=== PATIENT | male | born 1935 | race Caucasian/White ===

== ENCOUNTER 2017-12-09 13:39 | Observation (INO) | payer OTHER ==
[~2017-12-09 13:39] MED LIST: ADVA250A; ASPI81; HYDR-3533 PO; PROSTATE MED; ROSU20
[2017-12-09 13:58] VITALS: BP 156/74; PULSE 84; RESP 16; TEMP 97.4; O2SAT 98
--- NOTE | 2017-12-09 14:39 | RADRPT ---
EXAM DATE/TIME: 12/09/2017 14:23 [facility] COMPARISON: No previous studies available for comparison. INDICATIONS : Confussion RADIATION DOSE: 38.56 CTDIvol (mGy) MEDICAL HISTORY : Cardiovascular disease. asthma SURGICAL HISTORY : None. ENCOUNTER: Initial ACUITY: 1 day PAIN SCALE: 0/10 LOCATION: cranial TECHNIQUE: Multiple contiguous axial images were obtained of the head. Using automated exposure control and adj ustment of the mA and/or kV according to patient size, radiation dose was kept as low as reasonably a chievable to obtain optimal diagnostic quality images. DICOM format image data is available electro nically for review and comparison. FINDINGS: CEREBRUM: The ventricles are normal for age. No evidence of midline shift, mass lesion, hemorrhage or acute in farction. No extra-axial fluid collections are seen. Tiny old left lacunar infarct in the basal gang anjali. POSTERIOR FOSSA: The cerebellum and brainstem are intact. The 4th ventricle is midline. The cerebellopontine angle i s unremarkable. EXTRACRANIAL: The visualized portion of the orbits is intact. Chronic changes in the ethmoid sinuses bilaterally. SKULL: The calvaria is intact. No evidence of skull fracture. CONCLUSION: 1. No acute intracranial hemorrhage. 2. 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 3. Chronic sinus disease. Fortino Tapia MD on December 09, 2017 at 14:37 Board Certified Radiologist. This report was verified electronically.
--- NOTE | 2017-12-09 15:01 | RADRPT ---
EXAM DATE/TIME: 12/09/2017 14:40 [facility] COMPARISON: No previous studies available for comparison. INDICATIONS : Weakness and confusion today. MEDICAL HISTORY : Cardiovascular disease. Asthma. SURGICAL HISTORY : None. ENCOUNTER: Initial ACUITY: 1 day PAIN SCORE: 0/10 LOCATION: Bilateral chest FINDINGS: PA and lateral views of the chest demonstrates mild infiltrates in both lung bases. Mild pulmonary ve nous congestion.. The cardiomediastinal contours are unremarkable. There is evidence of previous car diothoracic surgery. Osseous structures are intact. CONCLUSION: 1. Mild bibasilar infiltrates 2. Mild pulmonary venous congestion. Fortino Tapia MD on December 09, 2017 at 14:59 Board Certified Radiologist. This report was verified electronically.
[2017-12-09 15:32] LABS: AUTOMATED NEUTROPHIL # 4.2 TH/MM3 (1.8-7.7); BASOPHIL % 0.5 % (0.0-2.0); EOSINOPHIL # 0.1 TH/MM3 (0-0.4); EOSINOPHIL % 1.7 % (0.0-4.0); HEMATOCRIT 36.3 % (39.0-51.0); HEMOGLOBIN 12.3 GM/DL (13.0-17.0); LYMPH % 17.7 % (9.0-44.0); LYMPHOCYTE # 1.1 TH/MM3 (1.0-4.8); MEAN CELL VOLUME 88.1 FL (80.0-100.0); MEAN CORPUSCULAR HEMOGLOBIN 29.8 PG (27.0-34.0); MEAN CORPUSCULAR HGB CONC 33.8 % (32.0-36.0); MEAN PLATELET VOLUME 7.7 FL (7.0-11.0); MONO % 9.6 % (0.0-8.0); MONOCYTE # 0.6 TH/MM3 (0-0.9); NEUT % 70.5 % (16.0-70.0); PLATELET COUNT 190 TH/MM3 (150-450); RED BLOOD COUNT 4.12 MIL/MM3 (4.50-5.90); RED CELL DISTRIBUTION WIDTH 15.9 % (11.6-17.2)
[2017-12-09 15:36] LABS: BACTERIA, URINE RARE /hpf; BILIRUBIN, URINE NEG (NEG); BLOOD, URINE NEG (NEG); GLUCOSE,URINE NEG (NEG); KETONE, URINE TRACE mg/dL (NEG); NITRITE,URINE NEG (NEG); PH, URINE 5.5 (5.0-8.5); URINE COLOR YELLOW (YELLW/STRAW); URINE LEUKOCYTE ESTERASE TRACE (NEG)
[2017-12-09 15:37] LABS: INTERNATIONAL NORMALIZED RATIO 1.1 RATIO; PROTHROMBIN TIME - PATIENT 11.1 SEC (9.8-11.6)
[2017-12-09 15:42] LABS: ALBUMIN 3.3 GM/DL (3.4-5.0); AST (GOT) 30 U/L (15-37); BICARBONATE 26.2 MEQ/L (21.0-32.0); BLOOD UREA NITROGEN 25 MG/DL (7-18); CALCIUM 8.4 MG/DL (8.5-10.1); CHLORIDE 112 MEQ/L (98-107); CREATININE 0.89 MG/DL (0.60-1.30); GLOMERULAR FILTRATION RATE 82 ML/MIN (>89); GLUCOSE,RANDOM 125 MG/DL (74-106); SODIUM (NA) 145 MEQ/L (136-145)
[2017-12-09 15:53] LABS: ALKALINE PHOSPHATASE 89 U/L (45-117); ALT (GPT) 23 U/L (12-78); TOTAL PROTEIN 6.9 GM/DL (6.4-8.2); TROPONIN I LESS THAN 0.02 NG/ML (0.02-0.05)
[2017-12-09 18:04] VITALS: BP 156/85; PULSE 81; RESP 16; TEMP 98; O2SAT 98
[2017-12-09] MEDS ORDERED: ASPI-183 PO (18:04)
[2017-12-09 19:08] VITALS: BP 129/91; PULSE 81; RESP 17; O2SAT 100
[2017-12-09] MEDS ORDERED: PIPERACIL-TAZO 3.375 GM PREMIX 50 ML IV ONE (19:30)
[2017-12-09] MEDS ORDERED: RESP: ALBUTEROL 2.5 MG/IPRATROPIUM 0.5 MG NEB (PRN) INH (21:30)
[2017-12-09] MEDS ORDERED: FUROSEMIDE 40 MG/4 ML VIAL IV PUSH ONE (21:30)
[2017-12-09] MEDS ORDERED: SODIUM CHLORIDE 0.9% FLUSH 10 ML FLUSH IV FLUSH PRN (21:30)
[2017-12-09] MEDS: RESP: ALBUTEROL 2.5 MG/IPRATROPIUM 0.5 MG NEB (SCH) INH (22:08)
--- NOTE | 2017-12-09 22:40 | HHI.HP ---
HPI Service [facility] Primary Care Physician Nhan Linton MD Admission Diagnosis Pneumonia, CHF Diagnoses: Travel History International Travel<30 Days: No Contact w/Intl Traveler <30 Da: No Traveled to Known Affected Are: No History of Present Illness 82-year-old male with past medical history significant for CHF, COPD and CAD presents to the emergency department for evaluation of confusion and weakness. The patient was brought to the emergency department by his neighbor for evaluation of his symptoms. According to his neighbor, the patient was confused upon waking up this morning and was wandering around his house disoriented. The patient stated to his neighbor that he didn't know where he was and that he didn't feel good. The patient is an extremely poor historian denying any medical history at this time. His neighbor reports that he takes multiple medications but he does not know what they are and he left them all at home. Patient denies any chest pain or shortness of breath. He denies nausea/ vomiting/diarrhea. Denies lateralizing signs/symptoms. States he does not feel fatigued or confused. Review of Systems Except as stated in HPI: all other systems reviewed are Neg Past Family Social History Past Medical History CHF COPD CAD A. fib? Past Surgical History CABG 4 Reported Medications Reported Meds & Active Scripts Active Reported Aspirin 325 Mg Tab 325 Mg PO DAILY Allergies: Coded Allergies: No Known Allergies (Verified Adverse Reaction, Unknown, 12/09/17) Family History Father with CAD Social History Rare alcohol. Denies tobacco and illicit drugs. Physical Exam Vital Signs Vital Signs Date Time Temp Pulse Resp B/P (MAP) Pulse Ox O2 Delivery O2 Flow Rate FiO2 12/09/17 19:08 81 17 129/91 (104) 100 Room Air 12/09/17 18:05 84 16 98 Room Air 12/09/17 18:04 98.0 81 16 156/85 (108) 98 Room Air 12/09/17 13:58 97.4 84 16 156/74 (101) 98 Physical Exam GENERAL: male sitting up in bed SKIN: No rashes, ecchymoses or lesions. Cool and dry. HEAD: Atraumatic. Normocephalic. No temporal or scalp tenderness. EYES: Pupils equal round and reactive. Extraocular motions intact. No scleral icterus. No injection or drainage. ENT: Nose without bleeding, purulent drainage or septal hematoma. Throat without erythema, tonsillar hypertrophy or exudate. Uvula midline. Airway patent. NECK: Trachea midline. No JVD or lymphadenopathy. Supple, nontender, no meningeal signs. CARDIOVASCULAR: Irregularly irregular rhythm without murmurs/rubs/gallops. RESPIRATORY: Bilateral crackles. No wheezes/rales/rhonchi GASTROINTESTINAL: Abdomen soft, non-tender, nondistended. No hepato-splenomegaly , or palpable masses. No guarding. MUSCULOSKELETAL: 2+ pitting edema bilaterally. No calf tenderness. NEUROLOGICAL: Awake and alert. Cranial nerves II through XII intact. Motor and sensory grossly within normal limits. Normal speech. A&O 3. Laboratory Laboratory Tests Test 12/09/17 15:04 12/09/17 19:30 White Blood Count 6.0 Red Blood Count 4.12 Hemoglobin 12.3 Hematocrit 36.3 Mean Corpuscular Volume 88.1 Mean Corpuscular Hemoglobin 29.8 Mean Corpuscular Hemoglobin Concent 33.8 Red Cell Distribution Width 15.9 Platelet Count 190 Mean Platelet Volume 7.7 Neutrophils (%) (Auto) 70.5 Lymphocytes (%) (Auto) 17.7 Monocytes (%) (Auto) 9.6 Eosinophils (%) (Auto) 1.7 Basophils (%) (Auto) 0.5 Neutrophils # (Auto) 4.2 Lymphocytes # (Auto) 1.1 Monocytes # (Auto) 0.6 Eosinophils # (Auto) 0.1 Basophils # (Auto) 0.0 CBC Comment DIFF FINAL Differential Comment Prothrombin Time 11.1 Prothromb Time International Ratio 1.1 Activated Partial Thromboplast Time 27.3 Urine Color YELLOW Urine Turbidity CLEAR Urine pH 5.5 Urine Specific [place] 1.027 Urine Protein TRACE Urine Glucose (UA) NEG Urine Ketones TRACE Urine Occult Blood NEG Urine Nitrite NEG Urine Bilirubin NEG Urine Urobilinogen 4.0 Urine Leukocyte Esterase TRACE Urine RBC 1 Urine WBC 3 Urine Bacteria RARE Microscopic Urinalysis Comment CATH-CULTURE IND Blood Urea Nitrogen 25 Creatinine 0.89 Random Glucose 125 Total Protein 6.9 Albumin 3.3 Calcium Level 8.4 Alkaline Phosphatase 89 Aspartate Amino Transf (AST/SGOT) 30 Alanine Aminotransferase (ALT/SGPT) 23 Total Bilirubin 1.0 Sodium Level 145 Potassium Level 4.0 Chloride Level 112 Carbon Dioxide Level 26.2 Anion Gap 7 Estimat Glomerular Filtration Rate 82 Ammonia 26 Total Creatine Kinase 142 Troponin I LESS THAN 0.02 B-Type Natriuretic Peptide 991 Thyroid Stimulating Hormone 3rd Gen 2.540 Lactic Acid Level 1.0 Date/Time Source Procedure Growth Status 12/09/17 19:38 Blood Peripheral Aerobic Blood Culture Pending Received 12/09/17 19:38 Blood Peripheral Anaerobic Blood Culture Pending Received 12/09/17 15:04 Urine Catheterized Urine Urine Culture Pending Received Result Diagram: 12/09/17 1504 12/09/17 1504 Caprini VTE Risk Assessment Caprini VTE Risk Assessment: Mod/High Risk (score >= 2) Caprini Risk Assessment Model Point Value = 1 Point Value = 2 Point Value = 3 Point Value = 5 Age 41-60 Minor surgery BMI > 25 kg/m2 Swollen legs Varicose veins or History of unexplained or recurrent spontaneous Oral contraceptives or hormone replacement Sepsis (< 1 month) Serious lung disease, including pneumonia (< 1 month) Abnormal pulmonary function Acute myocardial infarction Congestive heart failure (< 1 month) History of inflammatory bowel disease Medical patient at bed rest Age 61-74 Arthroscopic surgery Major open surgery (> 45 min) Laparoscopic surgery (> 45 min) Malignancy Confined to bed (> 72 hours) Immobilizing plaster cast Central venous access Age >= 75 History of VTE Family history of VTE Factor V Leiden Prothrombin [id number] Lupus anticoagulant Anticardiolipin antibodies Elevated serum homocysteine Heparin-induced thrombocytopenia Other congenital or acquired thrombophilia Stroke (< 1 month) Elective arthroplasty Hip, pelvis, or leg fracture Acute spinal cord injury (< 1 month) Prophylaxis Regimen Total Risk Factor Score Risk Level Prophylaxis Regimen 0-1 Low Early ambulation 2 Moderate Order ONE of the following: *Sequential Compression Device (SCD) *Heparin 5000 units SQ BID 3-4 Higher Order ONE of the following medications: *Heparin 5000 units SQ TID *Enoxaparin/Lovenox 40 mg SQ daily (WT < 150 kg, CrCl > 30 mL/min) *Enoxaparin/Lovenox 30 mg SQ daily (WT < 150 kg, CrCl > 10-29 mL/min) *Enoxaparin/Lovenox 30 mg SQ BID (WT < 150 kg, CrCl > 30 mL/min) AND/OR *Sequential Compression Device (SCD) 5 or more Highest Order ONE of the following medications: *Heparin 5000 units SQ TID (Preferred with Epidurals) *Enoxaparin/Lovenox 40 mg SQ daily (WT < 150 kg, CrCl > 30 mL/min) *Enoxaparin/Lovenox 30 mg SQ daily (WT < 150 kg, CrCl > 10-29 mL/min) *Enoxaparin/Lovenox 30 mg SQ BID (WT < 150 kg, CrCl > 30 mL/min) AND *Sequential Compression Device (SCD) Assessment and Plan Assessment and Plan Assessment/plan: 1. Pneumonia Chest x-ray significant for mild bibasilar infiltrates, personally reviewed Azithromycin/Rocephin Blood cultures pending 2. CHF Chest x-ray significant for mild pulmonary vascular congestion, personally reviewed 2+ bilateral pitting edema BNP 991 Unknown home medications IV Lasix Echo pending 3. UTI UA consistent with urinary tract infection Urine culture pending Antibiotics as above 4. Confusion Likely secondary to pneumonia and UTI Head CT negative for acute process Monitor heparin 5. COPD DuoNeb's 6. Multiple medical comorbidities Currently unknown as patient is a poor historian Order placed to contact patient's pharmacy to determine home medications FEN: Heart healthy diet Electrolytes: Monitor and replete when necessary Heparin Dipika Becerra MD Dec 09, 2017 22:40
[2017-12-09] MEDS ORDERED: RESP: ALBUTEROL 2.5 MG/IPRATROPIUM 0.5 MG NEB (PRN) NEB (22:45)
[2017-12-09] MEDS: cefTRIAXone INJ 1,000 MG in SODIUM CHLORIDE 0.9% INJ 100 ML IV SCH (23:00)
[2017-12-09 23:01] VITALS: BP 139/82; PULSE 84; RESP 20; TEMP 97.7; O2SAT 96
[2017-12-10] VITALS (8 sets, daily range): BP systolic 102–153; BP diastolic 59–85; PULSE 66–90; RESP 16–24; TEMP 97.5–98; O2SAT 94–99
[2017-12-10] MEDS: AZITHROMYCIN INJ 500 MG in SODIUM CHLOR 0.9% 250 ML INJ 250 ML IV SCH ×2
[2017-12-10] MEDS: RESP: ALBUTEROL 2.5 MG/IPRATROPIUM 0.5 MG NEB (SCH) INH ×4 (03:51→21:00)
[2017-12-10] MEDS: HEPARIN SODIUM - SQ 10,000 UNITS/ML VIAL SQ SCH ×3 (06:22→22:00)
[2017-12-10 07:51] LABS: AUTOMATED NEUTROPHIL # 3.5 TH/MM3 (1.8-7.7); BASOPHIL % 0.8 % (0.0-2.0); EOSINOPHIL # 0.2 TH/MM3 (0-0.4); EOSINOPHIL % 3.4 % (0.0-4.0); HEMATOCRIT 34.2 % (39.0-51.0); HEMOGLOBIN 11.7 GM/DL (13.0-17.0); LYMPH % 19.1 % (9.0-44.0); MEAN CELL VOLUME 86.6 FL (80.0-100.0); MEAN CORPUSCULAR HEMOGLOBIN 29.7 PG (27.0-34.0); MEAN CORPUSCULAR HGB CONC 34.3 % (32.0-36.0); MEAN PLATELET VOLUME 7.8 FL (7.0-11.0); MONO % 11.6 % (0.0-8.0); MONOCYTE # 0.6 TH/MM3 (0-0.9); NEUT % 65.1 % (16.0-70.0); PLATELET COUNT 161 TH/MM3 (150-450); RED BLOOD COUNT 3.95 MIL/MM3 (4.50-5.90); RED CELL DISTRIBUTION WIDTH 15.5 % (11.6-17.2); WHITE BLOOD COUNT 5.4 TH/MM3 (4.0-11.0)
[2017-12-10 08:15] LABS: BICARBONATE 30.2 MEQ/L (21.0-32.0); CALCIUM 8.4 MG/DL (8.5-10.1); CREATININE 0.92 MG/DL (0.60-1.30)
[2017-12-10] MEDS ORDERED: FUROSEMIDE 20 MG/2 ML VIAL IV PUSH SCH (09:00)
[2017-12-10] MEDS: FUROSEMIDE 40 MG/4 ML VIAL IV PUSH SCH ×2 (09:38→17:39)
[2017-12-10] MEDS: SODIUM CHLORIDE 0.9% FLUSH 10 ML FLUSH IV FLUSH SCH ×2 (09:38→20:27)
[2017-12-10] MEDS ORDERED: POTASSIUM CHLORIDE 20 MEQ CONTROLLED RELEASE TAB PO ONE (10:00)
[2017-12-10] MEDS ORDERED: SYMB80AE INH (11:36)
[2017-12-10] MEDS ORDERED: ATOR40TA16 PO (11:36)
[2017-12-10] MEDS ORDERED: FURO20TA PO (11:36)
[2017-12-10] MEDS ORDERED: POTA-163 PO (11:36)
--- NOTE | 2017-12-10 14:17 | HHI.PR ---
Subjective Remarks Follow-up encephalopathy. He is awake and oriented 3. He feels good denies any complaints no headache, dizziness, chest pain and shortness of breath. States he woke up confused yesterday morning. Discussed with nursing Objective Vitals Vital Signs Date Time Temp Pulse Resp B/P (MAP) Pulse Ox O2 Delivery O2 Flow Rate FiO2 12/10/17 12:04 97.9 90 24 144/78 (100) 98 12/10/17 07:44 97.5 81 20 153/85 (107) 98 12/10/17 03:53 98.0 66 16 117/68 (84) 99 12/09/17 23:01 97.7 84 20 139/82 (101) 96 12/09/17 22:47 12/09/17 19:08 81 17 129/91 (104) 100 Room Air 12/09/17 18:05 84 16 98 Room Air 12/09/17 18:04 98.0 81 16 156/85 (108) 98 Room Air I/O 12/09/17 12/09/17 12/09/17 12/10/17 12/10/17 12/10/17 07:00 15:00 23:00 07:00 15:00 23:00 Intake Total 50 ml 354 ml Output Total 800 ml 400 ml Balance 50 ml -800 ml -46 ml Intake Oral 354 ml IV Total 50 ml Output Urine Total 800 ml 400 ml Result Diagram: 12/10/17 0711 12/10/17 0711 Imaging Last Impressions Head CT 12/09/17 1401 Signed Impressions: Service Date/Time: Saturday, December 09, 2017 14:23 - CONCLUSION: 1. No acute intracranial hemorrhage. 2. 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 3. Chronic sinus disease. Fortino Tapia MD Chest X-Ray 12/09/17 1401 Signed Impressions: Service Date/Time: Saturday, December 09, 2017 14:40 - CONCLUSION: 1. Mild bibasilar infiltrates 2. Mild pulmonary venous congestion. Fortino Tapia MD Objective Remarks GENERAL: male sitting up in bed SKIN: No rashes, ecchymoses or lesions. Cool and dry. CARDIOVASCULAR: S1 and S2 RESPIRATORY: Bilateral crackles. No wheezes/rales/rhonchi GASTROINTESTINAL: Abdomen soft, non-tender, nondistended. No hepato-splenomegaly , or palpable masses. No guarding. MUSCULOSKELETAL: 2+ pitting edema bilaterally. No calf tenderness. NEUROLOGICAL: Awake and alert. Cranial nerves II through XII intact. Motor and sensory grossly within normal limits. Normal speech. A&O 3. Procedures None A/P Problem List: (1) PNA (pneumonia) ICD Code: J18.9 - Pneumonia, unspecified organism Assessment and Plan 1. Community acquired pneumonia. Stable continue IV Rocephin and Zithromax follow-up blood cultures. Will obtain sputum culture, Legionella and pneumococcal urinary antigen. Pneumonia 2. CHF, new onset. EF 45%. Continue IV diuresis with potassium supplementation repeat BMP and magnesium in the morning. CHF education, I/O and monitor weight. 3. UTI. Urine culture pending antibiotics as previously mentioned 4. Encephalopathy secondary to above. This is resolved. Continue to monitor 5. COPD. Stable continue nebulization 6. Questionable new onset A. fib. Continue aspirin monitor on telemetry FEN: Heart healthy diet Electrolytes: Monitor and replete when necessary Heparin Discharge Planning Possible discharge in the morning Richard Traylor MD Dec 10, 2017 14:17
--- NOTE | 2017-12-10 14:25 | EKG ---
Date Performed: 12/09/2017 Time Performed: 14:49:21 PTAGE: 82 years EKG: ATRIAL FIBRILLATION RIGHT BUNDLE BRANCH BLOCK LEFT ANTERIOR FASCICULAR BLOCK ABNORMAL ECG PREVIOUS TRACING : 12/24/2009 08.58 DOCTOR: Adonay Mullen Interpretating Date/Time 12/10/2017 14:24:24
--- NOTE | 2017-12-10 15:03 | ECHRPT ---
Indication: HEART FAILURE CONCLUSIONS Mildly dilated left ventricle. Mild concentric left ventricular hypertrophy. The left ventricular systolic function is mildly reduced with an estimated ejection fraction in the range of 45- 50%. There is abnormal (paradoxical) septal motion consistent with postoperative state. The left atrial size is moderately dilated. The right atrial size is moderately dilated. No atrial level shunt is demonstrated by color flow Doppler interrogation. The aortic root and proximal ascending aorta are not well visualized. [id number] mitral valve regurgitation. Aortic valve sclerosis is present. Trace aortic valve regurgitation. There is mild to moderate tricuspid valve regurgitation. The estimated pulmonary arterial pressure is 47 mmHg. BP: 153 / 85 HR: 81 Rhythm: Atrial fibrillation, Atrial flut ter MEASUREMENTS (Male / Female) Normal Values Technical Quality:Fair 2D ECHO LV Diastolic Diameter PLAX 6.4 cm 4.2 - 5.9 / 3.9 - 5.3 cm LV Systolic Diameter PLAX 5.5 cm IVS Diastolic Thickness 1.2 cm 0.6 - 1.0 / 0.6 - 0.9 cm LVPW Diastolic Thickness 1.2 cm 0.6 - 1.0 / 0.6 - 0.9 cm LV Relative Wall Thickness 0.4 RV Internal Dim ED PLAX 2.5 cm LVOT Diameter 2.3 cm Aortic Root Diameter 3.4 cm LA Systolic Diameter LX 5.1 cm 3.0 - 4.0 / 2.7 - 3.8 cm M-MODE AV Cusp Separation MM 1.7 cm DOPPLER AV Peak Velocity 183.7 cm/s AV Peak Gradient 13.5 mmHg AV Mean Gradient 7.3 mmHg AV Velocity Time Integral 30.6 cm LVOT Peak Velocity 117.7 cm/s LVOT Peak Gradient 5.5 mmHg LVOT Velocity Time Integral 20.9 cm AV Area Cont Eq vti 2.8 cm AV Area Cont Eq pk 2.7 cm Mitral E Point Velocity 94.0 cm/s LV E' Lateral Velocity 13.8 cm/s Mitral E to LV E' Lateral Ratio 6.8 LV E' Septal Velocity 8.0 cm/s Mitral E to LV E' Septal Ratio 11.7 TR Peak Velocity 282.3 cm/s TR Peak Gradient 31.9 mmHg Right Atrial Pressure 10.0 mmHg Pulmonary Artery Systolic Pressu 41.9 mmHg Right Ventricular Systolic Press 41.9 mmHg PV Peak Velocity 77.0 cm/s PV Peak Gradient 2.4 mmHg FINDINGS LEFT VENTRICLE Mildly dilated left ventricle. Mild concentric left ventricular hypertrophy. The left ventricular systolic function is mildly reduced with an estimated ejection fraction in the range of 45- 50%. There is abnormal (paradoxical) septal motion consistent with postoperative state. RIGHT VENTRICLE Normal right ventricular size and systolic function. LEFT ATRIUM The left atrial size is moderately dilated. RIGHT ATRIUM The right atrial size is moderately dilated. ATRIAL SEPTUM No atrial level shunt is demonstrated by color flow Doppler interrogation. AORTA The aortic root and proximal ascending aorta are not well visualized. MITRAL VALVE [id number] mitral valve regurgitation. AORTIC VALVE Aortic valve sclerosis is present. Trace aortic valve regurgitation. TRICUSPID VALVE There is mild to moderate tricuspid valve regurgitation. The estimated pulmonary arterial pressure is 47 mmHg. PULMONARY VALVE No pulmonary valve regurgitation or stenosis. PERICARDIUM No pericardial effusion. Hawk Hernandez MD (Electronically Signed) Final Date:10 December 2017 15:02
[2017-12-10] MEDS ORDERED: ONDANSETRON HCL 4 MG/2 ML VIAL IVP PRN (16:15)
[2017-12-10] MEDS ORDERED: NALOXONE HCL 0.4 MG/ML AMP IV PUSH PRN (16:15)
[2017-12-10] MEDS ORDERED: SENNOSIDES 8.6 MG TAB PO PRN (16:15)
[2017-12-10] MEDS ORDERED: ACETAMINOPHEN 325 MG TAB PO PRN ×2 (16:15)
[2017-12-10] MEDS ORDERED: LACTULOSE SYRUP 20 GM/30 ML CUP PO PRN (16:15)
[2017-12-10] MEDS ORDERED: BISACODYL 10 MG SUPP RECTAL PRN (16:15)
[2017-12-10] MEDS ORDERED: MAGNESIUM HYDROXIDE SUSP 30 ML CUP PO PRN (16:15)
[2017-12-10] MEDS: BUDESONIDE-FORMOTEROL 80/4.5 MCG INHALER INH SCH (20:27)
[2017-12-10] MEDS: POTASSIUM CHLORIDE 10 MEQ CONTROLLED RELEASE TAB PO SCH (20:27)
[2017-12-10] MEDS: DOCUSATE SODIUM 50 MG/SENNA 8.6 MG TAB PO SCH (21:00)
[2017-12-10] MEDS ORDERED: POTASSIUM CHLORIDE 10 MEQ CONTROLLED RELEASE TAB PO SCH (21:00)
[2017-12-10] MEDS ORDERED: ATORVASTATIN 40 MG TAB PO SCH (21:00)
[2017-12-11] MEDS: cefTRIAXone INJ 1,000 MG in SODIUM CHLORIDE 0.9% INJ 100 ML IV SCH (00:05)
[2017-12-11] MEDS: AZITHROMYCIN INJ 500 MG in SODIUM CHLOR 0.9% 250 ML INJ 250 ML IV SCH (00:16)
[2017-12-11] MEDS: RESP: ALBUTEROL 2.5 MG/IPRATROPIUM 0.5 MG NEB (SCH) INH ×3 (03:16→14:47)
[2017-12-11 04:15] VITALS: BP 147/73; PULSE 83; RESP 16; TEMP 97.8; O2SAT 97
[2017-12-11 05:51] LABS: BICARBONATE 31.5 MEQ/L (21.0-32.0); CALCIUM 8.7 MG/DL (8.5-10.1); CREATININE 1.06 MG/DL (0.60-1.30)
[2017-12-11] MEDS: HEPARIN SODIUM - SQ 10,000 UNITS/ML VIAL SQ SCH (06:20)
--- NOTE | 2017-12-11 07:49 | HHI.PR ---
Subjective Remarks Follow-up pneumonia and new onset A. fib. Patient doing okay without complaints no shortness of breath, chest pain and palpitations. Agrees to be anticoagulated with Eliquis. History of CAD will decrease aspirin to 81 mg daily discussed with nursing Objective Vitals Vital Signs Date Time Temp Pulse Resp B/P (MAP) Pulse Ox O2 Delivery O2 Flow Rate FiO2 12/11/17 04:15 97.8 83 16 147/73 (97) 97 12/10/17 23:37 97.8 72 16 109/70 (83) 94 12/10/17 21:02 96 21 12/10/17 20:09 98.0 78 16 102/59 (73) 97 12/10/17 15:54 97.9 83 24 129/69 (89) 99 12/10/17 12:04 97.9 90 24 144/78 (100) 98 12/10/17 11:40 95 I/O 12/10/17 12/10/17 12/10/17 12/11/17 12/11/17 12/11/17 07:00 15:00 23:00 07:00 15:00 23:00 Intake Total 354 ml Output Total 800 ml 600 ml 700 ml 500 ml Balance -800 ml -246 ml -700 ml -500 ml Intake Oral 354 ml Output Urine Total 800 ml 600 ml 700 ml 500 ml Result Diagram: 12/10/17 0711 12/11/17 0437 Imaging Last Impressions Head CT 12/09/171 Signed Impressions: Service Date/Time: Saturday, December 09, 2017 14:23 - CONCLUSION: 1. No acute intracranial hemorrhage. 2. 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 3. Chronic sinus disease. Fortino Tapia MD Chest X-Ray 12/09/17 1401 Signed Impressions: Service Date/Time: Saturday, December 09, 2017 14:40 - CONCLUSION: 1. Mild bibasilar infiltrates 2. Mild pulmonary venous congestion. Fortino Tapia MD Objective Remarks GENERAL: male sitting up in bed SKIN: No rashes, ecchymoses or lesions. Cool and dry. CARDIOVASCULAR: S1 and S2 irregularly irregular RESPIRATORY: Bilateral crackles. No wheezes/rales/rhonchi GASTROINTESTINAL: Abdomen soft, non-tender, nondistended. No guarding. MUSCULOSKELETAL: 2+ pitting edema bilaterally. No calf tenderness. NEUROLOGICAL: Awake and alert. Cranial nerves II through XII intact. Motor and sensory grossly within normal limits. Normal speech. Procedures None A/P Problem List: (1) PNA (pneumonia) ICD Code: J18.9 - Pneumonia, unspecified organism Assessment and Plan 1. Community acquired pneumonia. Stable continue IV Rocephin and Zithromax and switch to p.o. upon discharge follow-up blood cultures negative today. Negative legionella and pneumococcal urinary antigen. 2. CHF, new onset. EF 45% combination of systolic and diastolic. Improved continue diuresis with potassium supplementation repeat BMP and magnesium in the morning. CHF education, I/O and monitor weight. 3. UTI. Urine culture with immature growth antibiotics as previously mentioned 4. Encephalopathy secondary to above. This is resolved. Continue to monitor 5. COPD. Stable continue nebulization 6. New onset A. fib. High chads score. Start Eliquis continue aspirin 81 mg daily monitor on telemetry FEN: Heart healthy diet Electrolytes: Monitor and replete when necessary Discharge Planning Discharge patient to home Condition on discharge: Improved Regular Diet as tolerated Ad Marianne activity no driving Rx written: Eliquis, Ceftin Zithromax. Repeat chest x-ray in 6 weeks Follow-up with primary care physician Richard Traylor MD Dec 11, 2017 07:49
[2017-12-11 07:51] VITALS: O2SAT 98
[2017-12-11 08:57] VITALS: BP 123/81; PULSE 87; RESP 20; TEMP 98; O2SAT 97
[2017-12-11] MEDS ORDERED: ASPIRIN 325 MG TAB PO SCH (09:00)
--- NOTE | 2017-12-11 09:11 | HHI.FF ---
Face to Face Verification Diagnosis: (1) PNA (pneumonia) (2) CHF (congestive heart failure) (3) COPD (chronic obstructive pulmonary disease) (4) CAD (coronary artery disease) Physical Therapy Order: Evaluate and Treat, Improve ambulation, Strength and gait training Home Health Nursing Order: Medical education Signs/symptoms of disease process CHF education Nursing assessment with vital signs I have seen patient Rolan Pereira on 12/11/17. My clinical findings support the need for the requested home health care services because: Ltd mobility - disease progression Deconditioned w/ increased weakness Limited ability to care for self I certify that my clinical findings support that this patient is homebound because: Hx COPD- exertion dyspnea/weakness Unsteady gait/balance Unsafe to leave home unassisted Unable to use public transportation Mell Perdue PA-C Dec 11, 2017 9:11 am
[2017-12-11] MEDS ORDERED: AZIT500T2 PO (09:13)
[2017-12-11] MEDS ORDERED: CEFU1TAB20 PO (09:13)
[2017-12-11] MEDS: FUROSEMIDE 40 MG/4 ML VIAL IV PUSH SCH (09:18)
[2017-12-11] MEDS: POTASSIUM CHLORIDE 10 MEQ CONTROLLED RELEASE TAB PO SCH (09:19)
[2017-12-11] MEDS: BUDESONIDE-FORMOTEROL 80/4.5 MCG INHALER INH SCH (09:19)
[2017-12-11] MEDS: SODIUM CHLORIDE 0.9% FLUSH 10 ML FLUSH IV FLUSH SCH (09:20)
[2017-12-11] MEDS: DOCUSATE SODIUM 50 MG/SENNA 8.6 MG TAB PO SCH (09:20)
[2017-12-11] MEDS ORDERED: WALKER WHEELS/F1 MIS ×2 (10:48→13:34)
[2017-12-11 11:56] VITALS: BP 122/72; PULSE 76; RESP 20; TEMP 98; O2SAT 96
[2017-12-11] MEDS ORDERED: APIX5TAB PO (12:34)
[2017-12-11] MEDS ORDERED: ASPI-147 PO (12:34)
[2017-12-11] MEDS ORDERED: APIXABAN 5 MG TABLET PO SCH (12:45)
--- NOTE | 2017-12-11 18:15 | EKG ---
Date Performed: 12/11/2017 Time Performed: 11:53:17 PTAGE: 82 years EKG: ATRIAL FIBRILLATION WITH ABERRANT CONDUCTION OR VENTRICULAR PREMATURE COMPLEXES RIGHT AXIS DEVIATION RIGHT BUNDLE BRANCH BLOCK ABNORMAL ECG PREVIOUS TRACING : 12/09/2017 14.49 No significant change from previous tracing noted. DOCTOR: Brad Jain Interpretating Date/Time 12/11/2017 18:14:22
== END 2017-12-11 15:09 | disposition home or self-care (01) ==
LOC: NEPE 13:39 → NEDA 19:26 → NEPGCP 22:43
PROVIDERS: ADMIT Internal Medicine; ATTEND Internal Medicine
DX: J44.0 Chronic obstructive pulmonary disease with (acute) lower respiratory infection (principal); J18.9 Pneumonia, unspecified organism; I50.9 Heart failure, unspecified; N39.0 Urinary tract infection, site not specified; I45.2 Bifascicular block; R94.31 Abnormal electrocardiogram [ECG] [EKG]; I25.10 Atherosclerotic heart disease of native coronary artery without angina pectoris; I48.91 Unspecified atrial fibrillation; G93.40 Encephalopathy, unspecified; Z79.82 Long term (current) use of aspirin; Z79.01 Long term (current) use of anticoagulants; Z95.1 Presence of aortocoronary bypass graft
CPT/HCPCS: 70450; 71046; 80048; 80053; 81001; 82140; 82550; 83605; 83880; 84443; 84484; 85025; 85610; 85730; 87040; 87086; 87449; 93005; 93306; 94640; 94664; 96365; 96366; 96368; 96372; 96375; 96376; 97110; 97116; 97162; 99285; G0378; G8987; G8988; J0456; J0696; J1644; J1940; J2543; J7050

== ENCOUNTER 2017-12-13 14:08 | Emergency (ER) | payer OTHER ==
[~2017-12-13] VITALS: Ht 175.3 cm; Wt 90.0 kg
[~2017-12-13 14:08] MED LIST changes: -ADVA250A; +APIX5TAB PO; +ASPI-147 PO; -ASPI81; +ATOR40TA16 PO; +AZIT500T2 PO; +CEFU1TAB20 PO; +FURO20TA PO; -HYDR-3533 PO; +POTA-163 PO; -PROSTATE MED; -ROSU20; +SYMB80AE INH; +WALKER WHEELS/F1 MIS
[2017-12-13 15:03] VITALS: BP 119/59; PULSE 78; RESP 18; TEMP 98.3; O2SAT 98
[2017-12-13 18:57] VITALS: BP 144/84; PULSE 75; RESP 18; O2SAT 99
[2017-12-13] MEDS ORDERED: SODIUM CHLORIDE 0.9% FLUSH 10 ML FLUSH IV FLUSH PRN (19:00)
[2017-12-13 19:32] LABS: AUTOMATED NEUTROPHIL # 3.7 TH/MM3 (1.8-7.7); BASOPHIL % 0.5 % (0.0-2.0); EOSINOPHIL # 0.3 TH/MM3 (0-0.4); EOSINOPHIL % 4.1 % (0.0-4.0); HEMATOCRIT 35.7 % (39.0-51.0); HEMOGLOBIN 12.6 GM/DL (13.0-17.0); LYMPH % 25.3 % (9.0-44.0); LYMPHOCYTE # 1.6 TH/MM3 (1.0-4.8); MEAN CELL VOLUME 86.9 FL (80.0-100.0); MEAN CORPUSCULAR HEMOGLOBIN 30.6 PG (27.0-34.0); MEAN CORPUSCULAR HGB CONC 35.2 % (32.0-36.0); MEAN PLATELET VOLUME 7.8 FL (7.0-11.0); MONO % 12.1 % (0.0-8.0); MONOCYTE # 0.8 TH/MM3 (0-0.9); PLATELET COUNT 190 TH/MM3 (150-450); RED BLOOD COUNT 4.11 MIL/MM3 (4.50-5.90); RED CELL DISTRIBUTION WIDTH 15.4 % (11.6-17.2); WHITE BLOOD COUNT 6.4 TH/MM3 (4.0-11.0)
[2017-12-13 19:34] VITALS: O2SAT 99
[2017-12-13 19:44] LABS: ALBUMIN 3.5 GM/DL (3.4-5.0); AST (GOT) 23 U/L (15-37); BICARBONATE 28.8 MEQ/L (21.0-32.0); BLOOD UREA NITROGEN 28 MG/DL (7-18); CALCIUM 8.8 MG/DL (8.5-10.1); CHLORIDE 107 MEQ/L (98-107); CREATININE 0.94 MG/DL (0.60-1.30); GLOMERULAR FILTRATION RATE 77 ML/MIN (>89); GLUCOSE,RANDOM 92 MG/DL (74-106); SODIUM (NA) 142 MEQ/L (136-145)
[2017-12-13 19:45] LABS: ALT (GPT) 22 U/L (12-78)
[2017-12-13 19:47] LABS: ALKALINE PHOSPHATASE 81 U/L (45-117); TOTAL BILIRUBIN ADULT 1.9 MG/DL (0.2-1.0)
--- NOTE | 2017-12-13 19:47 | PD ---
HPI Chief Complaint: Altered Mental Status Time Seen by Provider: 19:18 Travel History International Travel<30 days: No Contact w/Intl Traveler<30days: No Traveled to known affect area: No History of Present Illness HPI Patient is an 82-year-old male presenting to the emergency department for evaluation of confusion. Patient states he was seen here for the same thing a few days ago. Patient states he woke up this morning and felt confused, he could not remember what day it was. He states that he has been forgetful, he reports that it is short term memory that is mostly affected. Patient states that he has not filled the antibiotics he was prescribed the other day. He states he forgot. He has no complaints of pain, he states that he does not feel confused right now. Symptom onset is gradual, symptoms seem to be exacerbated in the morning. Symptoms are moderate in nature PFSH Past Medical History Asthma: Yes Blood Disorders: No Cancer: No Cardiac Catheterization: Yes Cardiovascular Problems: Yes High Cholesterol: Yes Chest Pain: No Diminished Hearing: No Endocrine: No Genitourinary: No Immune Disorder: No Musculoskeletal: Yes Neurologic: Yes Psychiatric: No Reproductive: No Respiratory: Yes Immunizations Current: Yes Myocardial Infarction: Yes PNEUMOCCOCAL Vaccine (Year): 2007 Past Surgical History Abdominal Surgery: Yes (HERNIA) AICD: No Arteriovenous Shunt: No Cardiac Surgery: Yes (CABG) Coronary Artery Bypass Graft: Yes (2001) Insulin Pump: No Joint Replacement: No Pacemaker: No Social History Alcohol Use: Yes (OCCASIONAL) Tobacco Use: No (quit 20 years ago) Substance Use: No Allergies-Medications (Allergen,Severity, Reaction): Coded Allergies: No Known Allergies (Verified Adverse Reaction, Unknown, 12/13/17) Reported Meds & Prescriptions Reported Meds & Active Scripts Active Walker with Front Wheels (Device) 1 Mis Mis Ea .XX DIRECTED Ecotrin Low Strength (Aspirin) 81 Mg Tabdr 81 Mg PO DAILY Eliquis (Apixaban) 5 Mg Tab 5 Mg PO BID 30 Days Azithromycin 500 Mg Tab 500 Mg PO DAILY 3 Days Cefuroxime (Cefuroxime Axetil) 500 Mg Tab 500 Mg PO BID 5 Days Reported Furosemide 20 Mg Tab 20 Mg PO DAILY Potassium Chloride ER (Potassium Chloride) 20 Meq Tab 20 Meq PO DAILY Atorvastatin (Atorvastatin Calcium) 40 Mg Tab 40 Mg PO HS Symbicort Inh (Budesonide/Formoterol Fumarate) 80-4.5 Mcg/Act Aero 2 Puff INH Q12HR Review of Systems Except as stated in HPI: all other systems reviewed are Neg HENT: No: Headaches, Lightheadedness Cardiovascular: No: Chest Pain or Discomfort Respiratory: No: Shortness of Breath Gastrointestinal: No: Nausea, Abdominal Pain Genitourinary: No: Dysuria Neurologic: No: Focal Abnormalities, Change in Mentation Physical Exam Narrative GENERAL: Well-developed, well-nourished, well-kept elderly male. Presenting in no acute distress. SKIN: Warm and dry. HEAD: Atraumatic. Normocephalic. EYES: Pupils equal and round. No scleral icterus. No injection or drainage. ENT: No nasal bleeding or discharge. Mucous membranes pink and moist. NECK: Trachea midline. No JVD. CARDIOVASCULAR: Regular rate and rhythm. RESPIRATORY: No accessory muscle use. Scattered expiratory wheezes throughout GASTROINTESTINAL: Abdomen soft, non-tender, nondistended. Hepatic and splenic margins not palpable. MUSCULOSKELETAL: Extremities without clubbing, cyanosis, or edema. No obvious deformities. NEUROLOGICAL: Awake and alert. No obvious cranial nerve deficits. Motor grossly within normal limits. Five out of 5 muscle strength in the arms and legs. Normal speech. PSYCHIATRIC: Appropriate mood and affect; insight and judgment normal. Data Data Last Documented VS Vital Signs Date Time Temp Pulse Resp B/P (MAP) Pulse Ox O2 Delivery O2 Flow Rate FiO2 12/13/17 21:38 89 18 135/78 (97) 98 Room Air 12/13/17 20:50 98.0 Orders Orders Complete Blood Count With Diff (12/13/17 18:57) Comprehensive Metabolic Panel (12/13/17 18:57) Urinalysis - C+S If Indicated (12/13/17 18:57) Blood Glucose (12/13/17 18:57) Ecg Monitoring (12/13/17 18:57) Iv Access Insert/Monitor (12/13/17 18:57) Oximetry (12/13/17 18:57) Sodium Chloride 0.9% Flush (Ns Flush) (12/13/17 19:00) Chest, Single Ap (12/13/17 ) Sodium Chlor 0.9% 1000 Ml Inj (Ns 1000 M (12/13/17 20:30) Ct Brain W/O Iv Contrast(Rout) (12/13/17 21:33) Labs Laboratory Tests Test 12/13/17 19:10 12/13/17 19:30 White Blood Count 6.4 TH/MM3 Red Blood Count 4.11 MIL/MM3 Hemoglobin 12.6 GM/DL Hematocrit 35.7 % Mean Corpuscular Volume 86.9 FL Mean Corpuscular Hemoglobin 30.6 PG Mean Corpuscular Hemoglobin Concent 35.2 % Red Cell Distribution Width 15.4 % Platelet Count 190 TH/MM3 Mean Platelet Volume 7.8 FL Neutrophils (%) (Auto) 58.0 % Lymphocytes (%) (Auto) 25.3 % Monocytes (%) (Auto) 12.1 % Eosinophils (%) (Auto) 4.1 % Basophils (%) (Auto) 0.5 % Neutrophils # (Auto) 3.7 TH/MM3 Lymphocytes # (Auto) 1.6 TH/MM3 Monocytes # (Auto) 0.8 TH/MM3 Eosinophils # (Auto) 0.3 TH/MM3 Basophils # (Auto) 0.0 TH/MM3 CBC Comment DIFF FINAL Differential Comment Blood Urea Nitrogen 28 MG/DL Creatinine 0.94 MG/DL Random Glucose 92 MG/DL Total Protein 7.0 GM/DL Albumin 3.5 GM/DL Calcium Level 8.8 MG/DL Alkaline Phosphatase 81 U/L Aspartate Amino Transf (AST/SGOT) 23 U/L Alanine Aminotransferase (ALT/SGPT) 22 U/L Total Bilirubin 1.9 MG/DL Sodium Level 142 MEQ/L Potassium Level 4.3 MEQ/L Chloride Level 107 MEQ/L Carbon Dioxide Level 28.8 MEQ/L Anion Gap 6 MEQ/L Estimat Glomerular Filtration Rate 77 ML/MIN Urine Color YELLOW Urine Turbidity CLEAR Urine pH 8.0 Urine Specific [place] 1.020 Urine Protein TRACE mg/dL Urine Glucose (UA) NEG mg/dL Urine Ketones 10 mg/dL Urine Occult Blood NEG Urine Nitrite NEG Urine Bilirubin NEG Urine Urobilinogen 2.0 MG/DL Urine Leukocyte Esterase NEG Urine RBC LESS THAN 1 /hpf Urine WBC 2 /hpf Urine Squamous Epithelial Cells 1 /hpf Urine Amorphous Sediment RARE Microscopic Urinalysis Comment CATH-CULT NOT IND MDM Medical Decision Making Medical Screen Exam Complete: Yes Emergency Medical Condition: Yes Medical Record Reviewed: Yes Interpretation(s) Vital Signs Date Time Temp Pulse Resp B/P (MAP) Pulse Ox O2 Delivery O2 Flow Rate FiO2 12/13/17 19:34 99 Room Air 12/13/17 18:57 75 18 144/84 (104) 99 Room Air 12/13/17 15:03 98.3 78 18 119/59 (79) 98 Differential Diagnosis Urinary tract infection versus pneumonia versus metabolic abnormality versus dementia versus other Narrative Course Patient is a 82-year-old male presenting to the emergency department for evaluation of short-term memory loss and transient episodes of confusion. Patient is alert and oriented currently. He has no focal deficits. He patient lives alone and his son is picking him up tomorrow to bring him to [place]. Labs and imaging ordered and pending. CBC with no acute findings, chemistry with BUN of 28, patient was given 1 L of IV fluids. Urinalysis is unremarkable. Chest x-ray shows minimal basilar atelectasis. Cardiomegaly. No consolidation or effusion. CT scan of the brain was ordered and showed no acute intracranial abnormalities. Lacunar infarct left basal ganglia. Patient will be discharged home, there are no acute findings to warrant admission at this time. Patient will be likely kept in the emergency department overnight as he is waiting on transportation. Patient to follow-up with primary doctor for cognitive testing. Patient stable for discharge. Diagnosis Primary Impression: Memory loss, short term Referrals: Primary Care Physician Patient Instructions: General Instructions, Memory Loss in Older Adults (GEN) Additional Instructions: Follow-up with your primary doctor Return to emergency department for any new or worsening symptoms Med/Other Pt SpecificInfo: No Change to Meds Disposition: 01 DISCHARGE HOME Condition: Stable Dariela Garay Dec 13, 2017 19:47
[2017-12-13 20:06] LABS: AMORPHOUS SEDIMENT, URINE RARE; BILIRUBIN, URINE NEG (NEG); BLOOD, URINE NEG (NEG); GLUCOSE,URINE NEG (NEG); KETONE, URINE 10 mg/dL (NEG); NITRITE,URINE NEG (NEG); SQUAMOUS EPITHELIAL CELL URINE 1 /hpf (0-5); URINE COLOR YELLOW (YELLW/STRAW); URINE LEUKOCYTE ESTERASE NEG (NEG)
[2017-12-13] MEDS ORDERED: SODIUM CHLOR 0.9% 1000 ML INJ 1,000 ML IV ONE (20:30)
--- NOTE | 2017-12-13 20:39 | RADRPT ---
EXAM DATE/TIME: 12/13/2017 20:09 [facility] COMPARISON: No previous studies available for comparison. INDICATIONS : Wheezing MEDICAL HISTORY : Cardiovascular disease. Asthma. SURGICAL HISTORY : CABG. ENCOUNTER: Initial ACUITY: 1 day PAIN SCORE: 0/10 LOCATION: chest FINDINGS: Heart size enlarged. Postop CABG. Mild basilar atelectasis. No effusion or pneumothorax. CONCLUSION: 1. Minimal basilar atelectasis. Cardiomegaly. No consolidation or effusion. Thomas Purcell MD on December 13, 2017 at 20:37 Board Certified Radiologist. This report was verified electronically.
[2017-12-13 20:50] VITALS: BP 152/83; PULSE 79; RESP 18; TEMP 98; O2SAT 98
--- NOTE | 2017-12-13 21:33 | PD ---
Physical Exam Date Seen by Provider: Dec 13, 2017 Time Seen by Provider: 20:30 Narrative I, Dr. Martinez, have reviewed the advance practice practitioner's documentation and am in agreement, met with the patient face to face, made the diagnosis, and the medical decision making was done by me. *My assessment and Findings: Patient seen and evaluated with mid-level, please see notes for complete details. Patient is here for forgetfulness, but denies any focal neurological deficits. It seems like it has been worse in the last few days. Exam did not show any signs of significant acute focal neurological deficits. No pronator drift. He is awake and oriented 3, answering questions appropriately. Vital signs are stable. Plan to release and if workup is unremarkable. Follow-up with primary care doctor. Laboratory Tests Test 12/13/17 19:10 12/13/17 19:30 Red Blood Count 4.11 MIL/MM3 (4.50-5.90) Hemoglobin 12.6 GM/DL (13.0-17.0) Hematocrit 35.7 % (39.0-51.0) Monocytes (%) (Auto) 12.1 % (0.0-8.0) Eosinophils (%) (Auto) 4.1 % (0.0-4.0) Blood Urea Nitrogen 28 MG/DL (7-18) Total Bilirubin 1.9 MG/DL (0.2-1.0) Estimat Glomerular Filtration Rate 77 ML/MIN (>89) Urine Ketones 10 mg/dL (NEG) Last 24 hours Impressions Chest X-Ray 12/13/17 0000 Signed Impressions: Service Date/Time: Wednesday, December 13, 2017 20:09 - CONCLUSION: 1. Minimal basilar atelectasis. Cardiomegaly. No consolidation or effusion. Thomas Purcell MD Data Data Last Documented VS Vital Signs Date Time Temp Pulse Resp B/P (MAP) Pulse Ox O2 Delivery O2 Flow Rate FiO2 12/14/17 05:54 78 18 148/75 (99) 98 Room Air 12/13/17 20:50 98.0 Orders Orders Complete Blood Count With Diff (12/13/17 18:57) Comprehensive Metabolic Panel (12/13/17 18:57) Urinalysis - C+S If Indicated (12/13/17 18:57) Blood Glucose (12/13/17 18:57) Ecg Monitoring (12/13/17 18:57) Iv Access Insert/Monitor (12/13/17 18:57) Oximetry (12/13/17 18:57) Sodium Chloride 0.9% Flush (Ns Flush) (12/13/17 19:00) Chest, Single Ap (12/13/17 ) Sodium Chlor 0.9% 1000 Ml Inj (Ns 1000 M (12/13/17 20:30) Ct Brain W/O Iv Contrast(Rout) (12/13/17 21:33) Ed Discharge Order (12/13/17 22:43) Labs Laboratory Tests Test 12/13/17 19:10 12/13/17 19:30 White Blood Count 6.4 TH/MM3 Red Blood Count 4.11 MIL/MM3 Hemoglobin 12.6 GM/DL Hematocrit 35.7 % Mean Corpuscular Volume 86.9 FL Mean Corpuscular Hemoglobin 30.6 PG Mean Corpuscular Hemoglobin Concent 35.2 % Red Cell Distribution Width 15.4 % Platelet Count 190 TH/MM3 Mean Platelet Volume 7.8 FL Neutrophils (%) (Auto) 58.0 % Lymphocytes (%) (Auto) 25.3 % Monocytes (%) (Auto) 12.1 % Eosinophils (%) (Auto) 4.1 % Basophils (%) (Auto) 0.5 % Neutrophils # (Auto) 3.7 TH/MM3 Lymphocytes # (Auto) 1.6 TH/MM3 Monocytes # (Auto) 0.8 TH/MM3 Eosinophils # (Auto) 0.3 TH/MM3 Basophils # (Auto) 0.0 TH/MM3 CBC Comment DIFF FINAL Differential Comment Blood Urea Nitrogen 28 MG/DL Creatinine 0.94 MG/DL Random Glucose 92 MG/DL Total Protein 7.0 GM/DL Albumin 3.5 GM/DL Calcium Level 8.8 MG/DL Alkaline Phosphatase 81 U/L Aspartate Amino Transf (AST/SGOT) 23 U/L Alanine Aminotransferase (ALT/SGPT) 22 U/L Total Bilirubin 1.9 MG/DL Sodium Level 142 MEQ/L Potassium Level 4.3 MEQ/L Chloride Level 107 MEQ/L Carbon Dioxide Level 28.8 MEQ/L Anion Gap 6 MEQ/L Estimat Glomerular Filtration Rate 77 ML/MIN Urine Color YELLOW Urine Turbidity CLEAR Urine pH 8.0 Urine Specific [place] 1.020 Urine Protein TRACE mg/dL Urine Glucose (UA) NEG mg/dL Urine Ketones 10 mg/dL Urine Occult Blood NEG Urine Nitrite NEG Urine Bilirubin NEG Urine Urobilinogen 2.0 MG/DL Urine Leukocyte Esterase NEG Urine RBC LESS THAN 1 /hpf Urine WBC 2 /hpf Urine Squamous Epithelial Cells 1 /hpf Urine Amorphous Sediment RARE Microscopic Urinalysis Comment CATH-CULT NOT IND MDM Medical Record Reviewed: Yes Supervised Visit with BRENT: Yes Diagnosis Primary Impression: Memory loss, short term Disposition: 01 DISCHARGE HOME Condition: Stable Steph Martinez MD Dec 13, 2017 21:33
[2017-12-13 21:38] VITALS: BP 135/78; PULSE 89; RESP 18; O2SAT 98
--- NOTE | 2017-12-13 22:23 | RADRPT ---
EXAM DATE/TIME: 12/13/2017 22:05 [facility] COMPARISON: No previous studies available for comparison. INDICATIONS : Altered mental status. RADIATION DOSE: 51.78 CTDIvol (mGy) MEDICAL HISTORY : Cardiovascular disease. Hypertension. SURGICAL HISTORY : CABG ENCOUNTER: Initial ACUITY: 1 day PAIN SCALE: 0/10 LOCATION: cranial TECHNIQUE: Multiple contiguous axial images were obtained of the head. Using automated exposure control and adj ustment of the mA and/or kV according to patient size, radiation dose was kept as low as reasonably a chievable to obtain optimal diagnostic quality images. DICOM format image data is available electro nically for review and comparison. FINDINGS: CEREBRUM: The ventricles are normal for age. No evidence of midline shift, mass lesion, hemorrhage or acute in farction. No extra-axial fluid collections are seen. POSTERIOR FOSSA: The cerebellum and brainstem are intact. The 4th ventricle is midline. The cerebellopontine angle i s unremarkable. EXTRACRANIAL: The visualized portion of the orbits is intact. SKULL: The calvaria is intact. No evidence of skull fracture. CONCLUSION: 1. No acute intracranial abnormalities. Lacunar infarct left basal ganglia. Thomas Purcell MD on December 13, 2017 at 22:19 Board Certified Radiologist. This report was verified electronically.
[2017-12-14 00:31] VITALS: BP 134/78; PULSE 73; RESP 18; O2SAT 98
[2017-12-14 01:11] VITALS: BP 133/63; PULSE 76; RESP 17; O2SAT 98
[2017-12-14 05:54] VITALS: BP 148/75; PULSE 78; RESP 18; O2SAT 98
[2017-12-14 08:24] VITALS: BP 144/94; PULSE 81; RESP 16; O2SAT 98
== END 2017-12-14 11:56 | disposition home or self-care (01) ==
LOC: NEPE 14:08
DX: R41.3 Other amnesia (principal); J45.909 Unspecified asthma, uncomplicated; E78.00 Pure hypercholesterolemia, unspecified; I25.2 Old myocardial infarction; Z87.891 Personal history of nicotine dependence
CPT/HCPCS: 70450; 71045; 80053; 81001; 85025; 96360; 99285; J7030